=== PATIENT | male | born 1955 | race Caucasian/White ===

== ENCOUNTER → 2016-12-11 | Outpatient (CLI) | payer OTHER ==
[~2016-12-11] MED LIST: FAMO20 PO; HYDR-3129 PO; LISI-360 PO; LOVA40TA PO; NORV5TAB PO; TAB-TAB PO
[2016-12-11 09:40] LABS: ANION GAP 8 MEQ/L (5-15); AST (GOT) 24 U/L (15-37); BICARBONATE 27.4 MEQ/L (21.0-32.0); BLOOD UREA NITROGEN 12 MG/DL (7-18); CHLORIDE 107 MEQ/L (98-107); GLOMERULAR FILTRATION RATE 115 ML/MIN (>89); GLUCOSE,FASTING 115 MG/DL (74-99); POTASSIUM 3.6 MEQ/L (3.5-5.1); SODIUM (NA) 142 MEQ/L (136-145)
[2016-12-11 09:41] LABS: ALT (GPT) 41 U/L (12-78)
[2016-12-11 09:50] LABS: BASOPHIL # 0.2 TH/MM3 (0-0.2); BASOPHIL % 2.2 % (0.0-2.0); EOSINOPHIL # 0.8 TH/MM3 (0-0.4); EOSINOPHIL % 9.1 % (0.0-4.0); HEMATOCRIT 48.9 % (39.0-51.0); HEMO FLAGS DIFF FINAL; LYMPH % 23.1 % (9.0-44.0); MEAN CELL VOLUME 87.2 FL (80.0-100.0); MEAN CORPUSCULAR HEMOGLOBIN 29.7 PG (27.0-34.0); MONO % 7.3 % (0.0-8.0); NEUT % 58.3 % (16.0-70.0); PLATELET COUNT 320 TH/MM3 (150-450); RED BLOOD COUNT 5.61 MIL/MM3 (4.50-5.90); RED CELL DISTRIBUTION WIDTH 13.1 % (11.6-17.2); WHITE BLOOD COUNT 8.6 TH/MM3 (4.0-11.0)
[2016-12-11 10:07] LABS: ALKALINE PHOSPHATASE 55 U/L (45-117); HDL CHOLESTEROL 36.3 MG/DL (40.0-60.0); LDL CHOLESTEROL 126 MG/DL (0-99); TOTAL BILIRUBIN ADULT 0.7 MG/DL (0.2-1.0)
[2016-12-11 10:57] LABS: HEMOGLOBIN A1a 1.2 %; HEMOGLOBIN A1b 1.7 %; HEMOGLOBIN Ao 84.4 %; HEMOGLOBIN LA1C 2.1 %; HEMOGLOBIN P3 4.4 %
== END ==
LOC: PLAB 06:47
PROVIDERS: ATTEND Family Medicine
DX: Z00.00 Encounter for general adult medical examination without abnormal findings (principal)
CPT/HCPCS: 80053; 80061; 82306; 82607; 83036; 84153; 84443; 85025

== ENCOUNTER 2017-12-18 01:24 | Emergency (ER) | payer OTHER ==
[~2017-12-18] VITALS: Ht 180.3 cm; Wt 86.4 kg
[2017-12-18] MEDS ORDERED: TAMSULOSIN HCL 0.4 MG CAP PO ONE (01:30)
[2017-12-18] MEDS ORDERED: PROCHLORPERAZINE INJ 10 MG/2 ML VIAL IV PUSH ONE (01:30)
[2017-12-18] MEDS ORDERED: MORPHINE SULFATE 4 MG/ML INJ IV PUSH ONE (01:30)
[2017-12-18] MEDS ORDERED: SODIUM CHLOR 0.9% 1000 ML INJ 1,000 ML IV SCH (01:30)
[2017-12-18] MEDS ORDERED: KETOROLAC TROMETHAMINE 60 MG/2 ML (IM) VIAL IVP ONE (01:30)
[2017-12-18 01:37] VITALS: BP 163/82; PULSE 68; RESP 20; TEMP 98.8; O2SAT 98
[2017-12-18] MEDS ORDERED: MORPHINE SULFATE 8 MG/ML INJ IV PUSH ONE (01:45)
--- NOTE | 2017-12-18 02:44 | PD ---
HPI Chief Complaint: Flank/Kidney Pain Time Seen by Provider: 01:28 Travel History International Travel<30 days: No Contact w/Intl Traveler<30days: No Traveled to known affect area: No History of Present Illness HPI The patient is a 62-year-old male with a history of kidney stones who complains of left-sided flank pain which is sharp and similar to his previous kidney stones. The pain has been going on for 2 days. He denies any fever. He took some hydrocodone at home with only minimal relief. He came in with a pain of 10 /10. The pain is sharp pain in his left flank. the pain does not radiate. PFSH Past Medical History Hx Anticoagulant Therapy: No Arthritis: Yes Cancer: No Cardiovascular Problems: No Diabetes: No Diminished Hearing: Yes (BILATERAL) Diverticulitis: Yes Gastrointestinal Disorders: No GERD: Yes Genitourinary: Yes Hepatitis: No Hiatal Hernia: No Hypertension: Yes Kidney Stones: Yes Medical other: Yes (GERD, KNOWLES'S ESOPHAGUS, ARTHRITIS, BACK PROBLEMS) Musculoskeletal: Yes Neurologic: No Respiratory: No Thyroid Disease: No Tetanus Vaccination: > 5 Years Influenza Vaccination: Yes Past Surgical History Pacemaker: No Other Surgery: Yes (ANAL RECTAL FISTULA) Social History Alcohol Use: No Tobacco Use: No Substance Use: No Allergies-Medications (Allergen,Severity, Reaction): Coded Allergies: diatrizoate meglumine (Unverified Adverse Reaction, Severe, HALLUCINATIONS , 12/18/17) gadobenic acid (Unverified Adverse Reaction, Severe, HALLUCINATIONS, ) gadodiamide (Unverified Adverse Reaction, Severe, HALLUCINATIONS, 12/18/17) gadoteridol (Unverified Adverse Reaction, Severe, HALLUCINATIONS, 12/18/17) iodixanol (Unverified Adverse Reaction, Severe, HALLUCINATIONS, 12/18/17) iohexol (Unverified Adverse Reaction, Severe, HALLUCINATIONS, 12/18/17) Reported Meds & Prescriptions Reported Meds & Active Scripts Active Adel 10/325 (Hydrocodone-Acetaminophen 10/325) Acetaminophen 325/10 Hydrocodone Tab 1 Tab PO Q4H PRN Reported Norvasc (Amlodipine Besylate) 5 Mg Tab 5 Mg PO DAILY Lisinopril 10 mg (Lisinopril) 10 Mg Tab 10 Mg PO DAILY Lovastatin 40 Mg Tab 40 Mg PO HS Pepcid 20 Mg Tab (Famotidine) 20 Mg Tab 20 Mg PO DAILY Multivitamin (Multivitamins) 1 Tab Tab 1 Tab PO DAILY Review of Systems Except as stated in HPI: all other systems reviewed are Neg Physical Exam Narrative GENERAL: The patient is alert, oriented 3 in moderate to severe distress with his left flank pain. SKIN: Focused skin assessment warm/dry. HEAD: Atraumatic. Normocephalic. EYES: Pupils equal and round. No scleral icterus. No injection or drainage. ENT: No nasal bleeding or discharge. Mucous membranes pink and moist. NECK: Trachea midline. No JVD. CARDIOVASCULAR: Regular rate and rhythm. No murmur appreciated. RESPIRATORY: No accessory muscle use. Clear to auscultation. Breath sounds equal bilaterally. GASTROINTESTINAL: Abdomen soft, minimally tender in the left flank to deep direct palpation, nondistended. Hepatic and splenic margins not palpable. No guarding or rebound is present. MUSCULOSKELETAL: No obvious deformities. No clubbing. No cyanosis. No edema. NEUROLOGICAL: Awake and alert. No obvious cranial nerve deficits. Motor grossly within normal limits. Normal speech. PSYCHIATRIC: Appropriate mood and affect; insight and judgment normal. Data Data Last Documented VS Vital Signs Date Time Temp Pulse Resp B/P (MAP) Pulse Ox O2 Delivery O2 Flow Rate FiO2 12/18/17 01:45 68 20 12/18/17 01:37 98.8 163/82 (109) 98 Orders Orders Urinalysis - C+S If Indicated (12/18/17 01:27) Tamsulosin (Flomax) (12/18/17 01:30) Ketorolac Inj (Toradol Inj) (12/18/17 01:30) Prochlorperazine Inj (Compazine Inj) (12/18/17 01:30) Sodium Chlor 0.9% 1000 Ml Inj (Ns 1000 M (12/18/17 01:30) Morphine Inj (Morphine Inj) (12/18/17 01:45) Ecg Monitoring (12/18/17 02:44) Iv Access Insert/Monitor (12/18/17 02:44) Sodium Chloride 0.9% Flush (Ns Flush) (12/18/17 02:45) Hydromorphone Pf Inj (Dilaudid Pf Inj) (12/18/17 02:45) Ondansetron Inj (Zofran Inj) (12/18/17 02:45) Ct Abd/Pel W/O Iv Contrast (12/18/17 02:47) Labs Laboratory Tests Test 12/18/17 03:02 Urine Color YELLOW Urine Turbidity CLEAR Urine pH 8.5 Urine Specific Corinne 1.020 Urine Protein NEG mg/dL Urine Glucose (UA) NEG mg/dL Urine Ketones 80 OR GREATER mg/dL Urine Occult Blood NEG Urine Nitrite NEG Urine Bilirubin NEG Urine Urobilinogen 0.2 MG/DL Urine Leukocyte Esterase NEG Urine RBC 0-2 /hpf Urine WBC 0-2 /hpf Urine Squamous Epithelial Cells 0-5 /hpf Urine Bacteria NONE /hpf Microscopic Urinalysis Comment CULT NOT INDICATED MDM Medical Decision Making Medical Screen Exam Complete: Yes Emergency Medical Condition: Yes Medical Record Reviewed: Yes Interpretation(s) The CT abdomen/pelvis without IV contrast shows only a small stone in the left kidney with no evidence of active obstruction or stone in the ureter bladder. Incidentally noted is sigmoid diverticulosis without evidence of diverticulitis. The urine shows 80 or greater ketones but is otherwise normal and cultures not indicated. There is no occult blood in the urine and the red cells are only 0-2. Differential Diagnosis Left ureteral stone, musculoskeletal pain, malingering to obtain narcotic pain medications, Narrative Course The patient likely has musculoskeletal pain. I can reproduce the pain by pressing on the left rib. Plan: He will be given ibuprofen 800 mg 3 times daily. He should follow-up with his primary care physician. Diagnosis Primary Impression: Musculoskeletal back pain Med/Other Pt SpecificInfo: Prescription(s) given Scripts Ibuprofen (Ibuprofen) 800 Mg Tab 800 MG PO TID, #33 TAB 0 Refills Prov: Marcial Hernandez MD 12/18/17 Disposition: 01 DISCHARGE HOME Condition: Stable Marcial Hernandez MD Dec 18, 2017 02:44
[2017-12-18] MEDS ORDERED: ONDANSETRON HCL 4 MG/2 ML VIAL IV ONE (02:45)
[2017-12-18] MEDS ORDERED: SODIUM CHLORIDE 0.9% FLUSH 10 ML FLUSH IVF PRN (02:45)
[2017-12-18] MEDS ORDERED: HYDROmorphone HCL PF 2 MG/ML VIAL IV PUSH ONE (02:45)
[2017-12-18 03:11] LABS: BILIRUBIN, URINE NEG (NEG); BLOOD, URINE NEG (NEG); GLUCOSE,URINE NEG (NEG); KETONE, URINE 80 OR GREATER mg/dL (NEG); NITRITE,URINE NEG (NEG); PH, URINE 8.5 (5.0-8.5); URINE COLOR YELLOW (YELLW/STRAW); URINE LEUKOCYTE ESTERASE NEG (NEG)
[2017-12-18 03:16] LABS: RBC, URINE 0-2 /hpf (0-3); SQUAMOUS EPITHELIAL CELL URINE 0-5 /hpf (0-5); WBC, URINE 0-2 /hpf (0-5)
--- NOTE | 2017-12-18 03:26 | RADRPT ---
EXAM DATE: 12/18/2017 3:15 AM EDT AGE/SEX: 62 years / Male INDICATIONS: Left flank pain for two days. CLINICAL DATA: This is the patient's initial encounter. Patient reports that signs and symptoms have been present for 1 day and indicates a pain score of 10/10. MEDICAL/SURGICAL HISTORY: Diverticulitis. Renal calculi. Sweeney's esophagus None. RADIATION DOSE: 8.73 CTDI (mGy) COMPARISON: No prior exams available for comparison. TECHNIQUE: Multiple contiguous axial images were obtained through the abdomen. Images were obtained using multiple row detector helical technique. Using automated exposure control and adjustment of the mA and/or kV according to patient size, radiation dose was kept as low as reasonably achievable to o btain optimal diagnostic quality images. DICOM format image data is available electronically for rev iew and comparison. FINDINGS: Lower Lungs: The visualized lower lungs are clear. Liver: The liver has a homogeneous density without space-occupying lesion. There is no dilation of th e biliary tree. Spleen: Homogeneous density without enlargement. Pancreas: Unremarkable without mass or calcification. Kidneys: Normal in size and shape. No evidence of mass or hydronephrosis. Small stone remains midpol e left kidney Adrenal Glands: Unremarkable. Aorta: The aorta and proximal iliac vessels are grossly unremarkable without aneurysmal dilation. Bowel/Mesentery: The bowel loops are grossly unremarkable. The cecum and sigmoid colon have a normal configuration. Sigmoid diverticulosis Abdominal Wall: Intact. Retroperitoneum: No evidence of adenopathy in the retrocrural, para-aortic, or deep pelvic regions. Bladder: Contours are smooth. Reproductive Organs: No abnormal masses or calcifications seen. Inguinal: The inguinal region is unremarkable without evidence of adenopathy. Bony Structures: Unremarkable. CONCLUSION: 1. There is a small remaining stone in the left kidney. No evidence of active obstruction or stone i n the ureter or bladder. 2. Sigmoid diverticulosis without evidence of diverticulitis Electronically signed by: Lazaro Malhotra MD 12/18/2017 3:25 AM EDT
[2017-12-18] MEDS ORDERED: IBUP1TAB7 PO (03:46)
== END 2017-12-18 03:57 | disposition home or self-care (01) ==
LOC: PHED 01:24
DX: M54.9 Dorsalgia, unspecified (principal); K21.9 Gastro-esophageal reflux disease without esophagitis; I10 Essential (primary) hypertension
CPT/HCPCS: 74176; 81001; 96361; 96374; 96375; 99284; J0780; J1170; J1885; J2270; J2405; J7030